=== PATIENT | female | born 1950 | race Two or more races ===

== ENCOUNTER 2017-01-03 13:30 | Emergency (ER) | payer MEDICARE, MEDICAID ==
[~2017-01-03] VITALS: Ht 180.3 cm; Wt 127.0 kg
--- NOTE | 2017-01-03 14:23 | Emergency Room Report ---
History of Present Illness General Chief Complaint: Multiple Trauma/Fall Source: Patient Present Illness HPI 66 YO F c/o lower back, left knee, and right elbow pain s/p trip and fall on rug at building/office. She is not sure how she tripped/fell or landed. Denies hitting head, LOC. Is usually on coumadin but stopped 3 days ago so she could see orthopedist tomorrow for procedure. 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 C /o itch and rash to torso, extremities. Denies fever/chills, vesicles, blisters. Allergies: Coded Allergies: ASPIRIN (Verified Allergy, Unknown, 01/03/17) CODEINE (Verified Allergy, Unknown, 01/03/17) Uncoded Allergies: SULFA (Allergy, Unknown, 01/03/17) Patient History Past Medical History: other - chronic venous stasus dermatitis Past Surgical History: none Pertinent Family History: none Social History: Denies: alcohol use, drug use, smoking Now: No Immunizations: UTD Reviewed Nursing Documentation: PMH: Agreed, PSxH: Agreed Nursing Documentation-PMH Past Medical History: No History, Except For Hx Cardiac Problems: Yes - CHF, osteoporosis, Hx Hypertension: Yes - GOUT Hx Asthma: Yes Review of Systems All Other Systems: negative except mentioned in HPI Physical Exam Vital Signs Date Time Temp Pulse Resp B/P Pulse Ox O2 Delivery O2 Flow Rate FiO2 01/03/17 13:45 97.5 78 14 107/64 98 Room Air Sp02 EP Interpretation: reviewed, normal General Appearance: normal inspection, well appearing, no apparent distress, alert, GCS 15, non-toxic, obese Head: normocephalic, atraumatic Eyes: bilateral eye EOMI, bilateral eye PERRL ENT: normal ENT inspection, hearing grossly normal, normal voice Neck: normal inspection, full range of motion, supple, no bony tend Respiratory: normal inspection, lungs clear, normal breath sounds, no respiratory distress, no retraction, no wheezing Cardiovascular #1: regular rate, rhythm, no edema Gastrointestinal: normal inspection, normal bowel sounds, non tender, soft, no guarding, no hernia Genitourinary: no CVA tenderness Musculoskeletal: normal inspection, back normal, gait/station normal, normal range of motion, non-tender, no calf tenderness, pelvis stable, Florecita's Sign negative, other - Lower back: No ecchymoses, bruising or signs of trauma. No ttp to midline or paravertebral area. Left knee and right elbow: full ROM; no ttp; no bruising. 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 Nothing in webbing of fingers Medical Decision Making Diagnostic Impression: Primary Impression: Multiple injuries due to trauma Additional Impression: Rash ER Course Accidental trip and fall. No head injury or LOC. No obvious signs of trauma or focal neuro deficits. Does not warrant imaging or further lab evaluation currently as no palpable ttp to any joint of concern Possible scabies - will DC with elemite for herself (also requested for daughter ) DC home Patient has orthopod appt tomorrow to followup for today's minor injuries as well Last Vital Signs Date Time Temp Pulse Resp B/P Pulse Ox O2 Delivery O2 Flow Rate FiO2 01/03/17 13:45 97.5 78 14 107/64 98 Room Air Status: improved Disposition: HOME, SELF-CARE LELO AMIN M.D. Jan 03, 2017 14:23
[2017-01-03] MEDS ORDERED: PERMETHRIN60 GM TOPIC (14:25)
[2017-01-03 14:42] VITALS: BP 118/75
== END 2017-01-03 14:42 | disposition home or self-care (01) ==
LOC: EDBD 13:30 → EMR 14:15
DX: M54.5 Low back pain (principal); M25.562 Pain in left knee; M25.521 Pain in right elbow; R21 Rash and other nonspecific skin eruption; J45.909 Unspecified asthma, uncomplicated; I10 Essential (primary) hypertension; W17.89XA Other fall from one level to another, initial encounter; W18.09XA Striking against other object with subsequent fall, initial encounter; Y92.59 Other trade areas as the place of occurrence of the external cause
CPT/HCPCS: 99282